=== PATIENT | female | born 1965 | race Caucasian/White ===

== ENCOUNTER 2019-12-14 11:40 | Emergency (ER) | payer SELFPAY ==
[~2019-12-14] VITALS: Ht 172.7 cm; Wt 70.3 kg
[~2019-12-14 11:40] MED LIST: ANAPROX DS550 MG PO; ATIVAN1 MG PO; KENALOG0.1% TP; TRAMADOL HCL50 MG PO
[2019-12-14] MEDS ORDERED: MEDROL DOSEPAK4 MG PO (14:41)
== END 2019-12-14 15:00 | disposition home or self-care (01) ==
LOC: ED 11:40
DX: M25.511 Pain in right shoulder (principal); M54.2 Cervicalgia; F41.9 Anxiety disorder, unspecified; F17.200 Nicotine dependence, unspecified, uncomplicated; Z79.899 Other long term (current) drug therapy